=== PATIENT | male | born 1990 | race Caucasian/White ===

== ENCOUNTER 2017-02-07 00:31 | Day surgery (SDC) | payer BC ==
[~2017-02-07 00:31] MED LIST: CEPH500 PO; Cephalexin500 MG PO; HYDMOR2 PO; HYDR1TAB94 PO; Hydrocodone-Ap1 EA23 PO; IBUP400 PO; IBUP600 PO
[2017-02-07] MEDS ORDERED: HYDMOR2 PO (10:20)
[2017-02-07] MEDS ORDERED: ACET500 PO (10:20)
== END 2017-02-07 10:50 | disposition home or self-care (01) ==
LOC: ATC 00:31
DX: M79.A22 Nontraumatic compartment syndrome of left lower extremity (principal); M62.82 Rhabdomyolysis; S81.802A Unspecified open wound, left lower leg, initial encounter
CPT/HCPCS: 99213

== ENCOUNTER 2017-02-10 01:02 | Day surgery (SDC) | payer BC ==
[~2017-02-10 01:02] MED LIST changes: +ACET500 PO
== END 2017-02-10 14:40 | disposition home or self-care (01) ==
LOC: ATC 01:02
DX: M79.A22 Nontraumatic compartment syndrome of left lower extremity (principal); M62.82 Rhabdomyolysis; S81.802A Unspecified open wound, left lower leg, initial encounter
CPT/HCPCS: 99211

== ENCOUNTER 2017-02-15 10:05 | Day surgery (SDC) | payer BC | END 2017-02-15 15:04 | disposition home or self-care (01) | LOC: WOUND 10:05 | PROC: 2W0RX6Z Change Pressure Dressing on Left Lower Leg (ICD-10-PCS; principal; 2017-02-15) | DX: Z48.00 Encounter for change or removal of nonsurgical wound dressing (principal); M79.A22 Nontraumatic compartment syndrome of left lower extremity; M62.82 Rhabdomyolysis; S81.802A Unspecified open wound, left lower leg, initial encounter | CPT/HCPCS: G0463 ==

== ENCOUNTER 2017-02-17 00:25 | Day surgery (SDC) | payer BC | END 2017-02-17 22:58 | disposition home or self-care (01) | LOC: ATC 00:25 | DX: M79.A22 Nontraumatic compartment syndrome of left lower extremity (principal); M62.82 Rhabdomyolysis; S81.802A Unspecified open wound, left lower leg, initial encounter ==

== ENCOUNTER 2022-06-01 14:26 | Emergency (ER) | payer BC ==
[~2022-06-01] VITALS: Ht 167.6 cm; Wt 102.1 kg
[2022-06-01 15:35] LABS: BASOPHILS ABSOLUTE AUTO 0.04 K/mm3 (0.00-0.23); BASOPHILS PERCENT AUTO 1 % (0-2); EOSINOPHILS PERCENT AUTO 2 % (0-6); Hematocrit 46.2 % (37.0-53.0); Hemoglobin 16.2 g/dL (13.5-17.5); IMMATURE GRAN ABSOLUTE AUTO 0.01 K/mm3 (0.00-0.10); IMMATURE GRAN PERCENT AUTO 0 % (0-1); LYMPHOCYTES ABSOLUTE AUTO 2.14 K/mm3 (0.84-5.20); LYMPHOCYTES PERCENT AUTO 37 % (21-46); MONOCYTES ABSOLUTE AUTO 0.53 K/mm3 (0.16-1.47); MONOCYTES PERCENT AUTO 9 % (4-13); Mean Corpuscular HGB 30.5 pg (26.0-34.0); Mean Corpuscular HGB Conc 35.1 g/dL (31.5-36.5); Mean Corpuscular Volume 87 fL (80-100); Mean Platelet Volume 9.6 fL (9.1-12.4); NEUTROPHILS ABSOLUTE AUTO 3.02 K/mm3 (1.96-9.15); NEUTROPHILS PERCENT AUTO 52 % (41-73); Platelet Count 253 K/mm3 (150-400); RDW Coefficient Variation 13.6 % (11.7-14.2); RDW Standard Deviation 43.7 fL (35.1-46.3); Red Blood Cell Count 5.31 M/mm3 (4.30-5.90); White Blood Cell Count 5.84 K/mm3 (4.00-11.30)
[2022-06-01 15:58] LABS: Albumin, Blood 3.8 g/dL (3.4-5.0); Bilirubin, Total 0.3 mg/dL (0.1-1.0); Bun/Creatinine Ratio 20.9 (12.0-20.0); Calcium, Blood 9.1 mg/dL (8.5-10.1); Creatinine, Blood 1.29 mg/dL (0.60-1.20); Globulin, Blood 3.8 g/dL (2.2-4.0); Potassium, Blood 3.8 mmol/L (3.5-5.5); Total Protein, Blood 7.6 g/dL (6.4-8.2)
[2022-06-01 18:48] VITALS: BP 123/65
== END 2022-06-01 18:48 | disposition home or self-care (01) ==
LOC: ER 14:26
PROVIDERS: Student in an Organized Health Care Education/Training Program
DX: R07.9 Chest pain, unspecified (principal)
CPT/HCPCS: 36415; 71046; 80053; 84484; 85025; 93005; 93010; 99285-25